=== PATIENT | female | born 1990 | race Caucasian/White ===

== ENCOUNTER 2016-12-26 04:06 | Inpatient (IN) | payer MEDICAID ==
[~2016-12-26] VITALS: Ht 172.7 cm; Wt 128.8 kg
--- NOTE | 2016-12-26 04:34 | NUR ---
PRESENTS TO ED C/C CP SINCE 229. REPROTS CP IS STERNAL 7/10 PRESSURE LIKE RADIATES TO THE L SIDE OF HER BACK AND CONSTAND. PT CDENIOES ANY SOB, DIZZINESS, SYNCOPE, PALPITATION. REPROTS NAUSEA DENIES VOMITING CONSTIPATION OR DIARREHA. PT REPROTS EXTENSVE CARDIAC HX. SEE TRIAGE. PT STABLE RESP E/U SPEAKING IN FULL LCELAR SNETNENCES. AA&0X4. PT STABLE. AT BEDSIDE. CALL LIGHT IWHIN REACH. NAD. NO INCINDENT NOTED.
[2016-12-26 04:58] LABS: CALCIUM 8.9 mg/dL (8.5-10.1); CARBON DIOXIDE 25.8 mmol/L (21-32); CHLORIDE SERUM 105 mmol/L (98-107); CREATININE SERUM 0.8 mg/dL (0.6-1.0); GFR1 > 60 mL/min; GLUCOSE SERUM 109 mg/dL (74-106); POTASSIUM SERUM 3.8 mmol/L (3.5-5.1); SODIUM SERUM 138 mmol/L (136-145)
[2016-12-26 05:03] LABS: ALKALINE PHOSPHATASE 85 U/L (46-116); ALT/SGPT 26 U/L (14-59); AST/SGOT 17 U/L (15-37); BILIRUBIN TOTAL 0.31 mg/dL (0.20-1.00)
[2016-12-26 05:04] LABS: ALBUMIN 3.3 g/dL (3.4-5.0); BASOPHIL % 0.6 % (0-2); PLATELET COUNT 227 x10^3mcL (130-400)
[2016-12-26 05:14] LABS: CK-MB < 0.5 ng/mL (0-3.6); CREATINE KINASE 51 U/L (26-192)
[2016-12-26] MEDS ORDERED: METOPROLOL TART75 MG PO (05:38)
[2016-12-26] MEDS ORDERED: ZESTRIL20 MG PO (05:39)
[2016-12-26 06:20] LABS: CHOLESTEROL/HDL RATIO 3.3; MAGNESIUM 1.8 mg/dL (1.8-2.4); PHOSPHOROUS 3.5 mg/dL (2.5-4.9)
[2016-12-26 06:28] LABS: T3 TOTAL 1.5 ng/mL
[2016-12-26 06:30] LABS: FREE T4 1.02 ng/dL (0.76-1.46); FREE THYROXINE INDEX 2.6 ug/dL (1.4-4.5); T4(THYROXINE) 8.2 ug/dL (4.7-13.3)
--- NOTE | 2016-12-26 07:11 | NUR ---
CALLED REPROT TO YONI OLMEDO TO ASSUME CARE OF PT.
--- NOTE | 2016-12-26 07:16 | NUR ---
GAVE REPROT TO ARUNA OLMEDO ASSUME CARE OF PT.
--- NOTE | 2016-12-26 07:30 | NUR ---
ADIMITED 26Y FEMALE FROM ED. A/A/OX4 DENIES GOLDSTEIN. APPEARS ACCURATE HISTORIAN. RESP EVEN AND UNLABORED WITH CLEAR BS BILAT. DENIES ANY SOB AT THIS TIME. PLACED ON TELE #30 SHOWING NSR HR IN 70S. PT REPORTS EPISODE OF CP PAIN LASTING ABOUT 3 HRS. RADIATING TO BACK AND WITH TINGLING TO LT ARM. DENIES ANY DIZZINESS/SYNCOPAL EPISODES. CURRENTLY DENIES ANY DISCOMFORT. PALPABLE PERIPHERAL, NO EDEMA NOTED WITH IV SL TO LAC. ABD SOFT, OBESE, NONTENDER WITH ACTIVE BS X4. DENIES ANY N/V. REPORTS 1 EPISODE OF NAUSEA WHILE HAVING CP. VOIDING FREELY DENIES ANY DISCOMFORT. SKIN WARM, DRY AND INTACT. AMBUALTORY. CALL LIGHT IN REACH NEEDS ATTENDED TO.
[2016-12-26 07:31] VITALS: BP 115/73
[2016-12-26 09:01] VITALS: BP 120/71
--- NOTE | 2016-12-26 09:30 | NUR ---
PT RESTIGN COMFORTABLY WITH ONGOING EXAM. CALL LIGHT IN REACH NEEDS ATTENDED TO.
[2016-12-26 12:24] LABS: UA SPECIFIC GRAVITY 1.015 (1.005-1.035); microscopic required? YES; urine erythrocyte NEGATIVE (NEGATIVE)
--- NOTE | 2016-12-26 12:25 | NUR ---
PT EVALUATED BY DR. SILVER, PT REQUESTED TO SPEAK TO ATTENDING NURSE. PT INQUIRED ABOUT D/C. MADE AWARE NO PLAN D/C INQUIRED ABOUT LEAVING WITH OUT ORDER MADE AWARE OF RIGHT TO AMA. PT MADE AWARE ATTENDING PHYSICIAN WILL BE CONTACTED TO COME AND DISCUSS AMA. DR. AGUIRRE AND DR. NICHOLS MADE AWARE. 1230: DR. AGUIRRE AND DR. NICHOLS DISCUSSED RISK OF LEAVING AMA. PT VERBALIZED UNDERSTANDING AND DECIDED TO SIGN OUT AMA DESPITE THE RISK. SIGNATURE OBTAINED BY . 1235: IV D/C'D CATHETER INTACT, PT'S AT BEDSIDE.
[2016-12-26 13:17] LABS: AMPHETAMINE QUAL UR NONE DETECTED (NEG <=1000)
== END 2016-12-26 13:14 | disposition left against medical advice (07) | DRG 243 ==
LOC: ED 04:06 → DU 05:30
PROVIDERS: Emergency Medicine; ADMIT Family Medicine
DX: K21.9 Gastro-esophageal reflux disease without esophagitis (principal); I50.43 Acute on chronic combined systolic (congestive) and diastolic (congestive) heart failure; Z68.41 Body mass index [BMI] 40.0-44.9, adult; E44.0 Moderate protein-calorie malnutrition; I42.9 Cardiomyopathy, unspecified; N39.0 Urinary tract infection, site not specified; E66.01 Morbid (severe) obesity due to excess calories; B33.24 Viral cardiomyopathy; I11.0 Hypertensive heart disease with heart failure; E02 Subclinical iodine-deficiency hypothyroidism; R73.03 Prediabetes; G43.909 Migraine, unspecified, not intractable, without status migrainosus; Z79.82 Long term (current) use of aspirin; Z95.810 Presence of automatic (implantable) cardiac defibrillator
CPT/HCPCS: 83880; 84439; J7030; Q0092

== ENCOUNTER 2017-03-25 16:56 | Emergency (ER) | payer MEDICAID ==
[~2017-03-25] VITALS: Ht 172.7 cm; Wt 106.1 kg
[~2017-03-25 16:56] MED LIST: METOPROLOL TART75 MG PO; ZESTRIL20 MG PO
[2017-03-25 18:36] LABS: BASOPHIL % 0.6 % (0-2); PLATELET COUNT 246 x10^3mcL (130-400)
[2017-03-25 18:40] LABS: RED CELL DISTRIBUTION WIDTH 16.2 % (11.5-14.5)
[2017-03-25 18:48] LABS: CALCIUM 9.1 mg/dL (8.5-10.1); CARBON DIOXIDE 28.5 mmol/L (21-32); CHLORIDE SERUM 105 mmol/L (98-107); CREATININE SERUM 0.8 mg/dL (0.6-1.0); GFR1 > 60 mL/min; GLUCOSE SERUM 91 mg/dL (74-106); POTASSIUM SERUM 4.2 mmol/L (3.5-5.1); SODIUM SERUM 140 mmol/L (136-145)
[2017-03-25 18:58] LABS: ALBUMIN 3.5 g/dL (3.4-5.0); ALKALINE PHOSPHATASE 86 U/L (46-116); ALT/SGPT 39 U/L (14-59); AST/SGOT 20 U/L (15-37); BILIRUBIN TOTAL 0.3 mg/dL (0.20-1.00); TOTAL PROTEIN, SERUM 7.8 g/dL (6.4-8.2)
[2017-03-25 20:21] VITALS: BP 128/79
== END 2017-03-25 20:21 | disposition home or self-care (01) ==
LOC: ED 16:56
PROVIDERS: Emergency Medicine
DX: R07.89 Other chest pain (principal)
CPT/HCPCS: 36415; 83880; Q0092